=== PATIENT | female | born 1975 | race Two or more races ===

== ENCOUNTER 2019-12-06 13:54 | Emergency (ER) | payer MEDICAID ==
[~2019-12-06] VITALS: Ht 162.6 cm; Wt 81.6 kg
--- NOTE | 2019-12-06 14:16 | NUR ---
GENERALIZED BODY ACHES SINCE WEDNESDAY. DENIES ANY FLU LIKE SYMPTOMS. PT AAOX4, VSS. RR EVEN & UNLABORED. DENIES CP, SOB, DIZZINESS, N/V/D @ THIS TIME. AWAITING EVAL BY NICOLAS. WILL CONT TO MONITOR.
[2019-12-06] MEDS ORDERED: ACETAMINOPHEN 325 MG TABLET PO ONE (14:30)
[2019-12-06] MEDS ORDERED: ACETAMINOPHEN 325 MG TABLET ONE (14:41)
--- NOTE | 2019-12-06 14:55 | NUR ---
MEDICATED FOR PAIN PER ERMD ORDER. PT JB WELL.
[2019-12-06 15:13] LABS: BASOPHILS % (AUTO) 0.4 % (0.0-2.0); EOSINOPHILS % (AUTO) 0.1 % (0.0-6.0); HEMATOCRIT 40 % (33-45); HEMOGLOBIN 13.7 g/dL (11.5-14.8); LYMPHOCYTES # (AUTO) 1.1 /CMM (0.8-4.8); LYMPHOCYTES % (AUTO) 22.5 % (20.0-44.0); MEAN CORPUSCULAR HGB CONC 34 g/dl (31.0-36.0); MEAN CORPUSCULAR VOLUME 89 fL (82-100); MONOCYTES # (AUTO) 0.3 /CMM (0.1-1.30); MONOCYTES % (AUTO) 6.9 % (2.0-12.0); NEUTROPHILS # (AUTO) 3.5 /CMM (1.8-8.9); NEUTROPHILS % (AUTO) 70.1 % (43.0-81.0); PLATELET COUNT (AUTO) 168 /CMM (150-450); RED BLOOD CELL COUNT(AUTO) 4.55 MIL/uL (4.0-5.2); WHITE BLOOD COUNT (AUTO) 4.9 K/uL (4.3-11.0)
[2019-12-06 15:25] LABS: CALCIUM, SERUM 8.8 mg/dL (8.5-10.1); CREATININE 0.9 mg/dL (0.6-1.3); POTASSIUM 3.7 mmol/L (3.5-5.1)
[2019-12-06 15:30] LABS: ALBUMIN 3.1 g/dL (3.4-5.0); BILIRUBIN,DIRECT 0.1 mg/dL (0.0-0.2); BILIRUBIN,TOTAL 0.5 mg/dL (0.2-1.0); TOTAL PROTEIN, SERUM 7.6 g/dL (6.4-8.2)
[2019-12-06 15:36] LABS: MAGNESIUM 1.9 mg/dL (1.8-2.4)
--- NOTE | 2019-12-06 16:55 | NUR ---
Patient discharged to home in stable condition. Written and verbal after care instructions given. Patient verbalizes understanding of instruction.
[2019-12-06 16:56] VITALS: BP 118/74
[2019-12-06 19:32] LABS: THYROID STIMULATING HORMONE 0.012 uIU/mL (0.358-3.74)
== END 2019-12-06 16:57 | disposition home or self-care (01) ==
LOC: ER 13:54
DX: E11.9 Type 2 diabetes mellitus without complications (principal)
CPT/HCPCS: 36415; 80048-TC; 80076-TC; 82550-TC; 82553; 83690-TC; 83735-TC; 84439-TC; 84443-TC; 85025-TC